=== PATIENT | male | born 1995 | race Two or more races ===

== ENCOUNTER 2016-05-06 13:46 | Emergency (ER) | payer OTHER ==
--- NOTE | 2016-05-06 13:58 | EDM.PDOC ---
ED HPI Trauma - General Chief Complaint: Upper Extremity Injury/Pain Stated Complaint: LT WRIST HURTS Time Seen by Provider: 05/06/16 13:47 Source: Reports: Patient History Limitations: Reports: No limitations - History of Present Illness INITIAL COMMENTS - FREE TEXT/NARRATIVE: History of present illness: [20-year-old male coming in with complaint of left wrist pain. Patient indicates that it is painful on the radial side of his left hand when he does a pinching gesture with the thumb and forefinger as well as pain in the last 3 digits when he hyperflexed his the wrist in either direction. Patient indicates he had a fall on that wrist approximately year ago but he's had increasing pain in the last week and is concerned and feels there might be some unresolved fracture he would like to have addressed.] Review of systems: As per history of present illness and below otherwise all systems reviewed and negative. Past medical history: As per history of present illness and as reviewed below otherwise noncontributory. Surgical history: As per history of present illness and as reviewed below otherwise noncontributory. Social history: No reported history of drug or alcohol abuse. Family history: As per history of present illness and as reviewed below otherwise noncontributory. Physical exam: HEENT: Atraumatic, normocephalic, pupils reactive, negative for conjunctival pallor or scleral icterus, mucous membranes moist, throat clear, neck supple, nontender, trachea midline. Lungs: Clear to auscultation, breath sounds equal bilaterally, chest nontender. Heart: S1S2, regular, negative for clicks, rubs, or JVD. Abdomen: Soft, nondistended, nontender. Negative for masses or hepatosplenomegaly. Negative for costovertebral tenderness. Pelvis: Stable nontender. Genitourinary: Deferred. Rectal: Deferred. Extremities: Atraumatic, negative for cords or calf pain. Neurovascular unremarkable. Neuro: Awake, alert, oriented. Cranial nerves II through XII unremarkable. Cerebellum unremarkable. Motor and sensory unremarkable throughout. Exam nonfocal. Global assessment was benign save neurologic evaluation as described in history of present illness. Diagnostics: [X-ray of left wrist] Therapeutics: [] Impression: [wrist pain] Plan: [meloxicam/OP f/u] Definitive disposition and diagnosis as appropriate pending reevaluation and review of above. Allergies/ADRs: Allergies No Known Allergies Allergy (Verified 05/06/16 14:14) Home Medications: Ambulatory Orders Meloxicam 7.5 mg PO BID #30 tablet 05/06/16 Review of Systems - Review of Systems Review Of Systems: See Below (See history of present illness) Trauma Exam - Physical Exam Exam: See Below (See history of present illness) Course - Vital Signs Last Recorded V/S: Last Vital Signs Temp 36.2 C 05/06/16 14:12 Pulse 78 05/06/16 14:12 Resp 16 05/06/16 14:12 BP 128/70 05/06/16 14:12 Pulse Ox 99 05/06/16 14:12 - Orders/Labs/Meds Orders: Active Orders 24 hr Category Date Time Status Wrist Comp Min 3V Lt [CR] Stat Exams 05/06/16 13:47 Taken Departure - Departure Time of Disposition: 14:43 Disposition: Home, Self-Care 01 Condition: good Clinical Impression: Wrist pain, left Prescriptions: Meloxicam 7.5 mg PO BID #30 tablet Instructions: Carpal Tunnel Syndrome, [id number] Forms: ED Department Discharge Additional Instructions: The following information is given to patients seen in the emergency department who are being discharged to home. This information is to outline your options for follow-up care. We provide all patients seen in our emergency department with a follow-up referral. The need for follow-up, as well as the timing and circumstances, are variable depending upon the specifics of your emergency department visit. If you don't have a primary care physician on staff, we will provide you with a referral. We always advise you to contact your personal physician following an emergency department visit to inform them of the circumstance of the visit and for follow-up with them and/or the need for any referrals to a consulting specialist. The emergency department will also refer you to a specialist when appropriate. This referral assures that you have the opportunity for follow-up care with a specialist. All of these measure are taken in an effort to provide you with optimal care, which includes your follow-up. Under all circumstances we always encourage you to contact your private physician who remains a resource for coordinating your care. When calling for follow-up care, please make the office aware that this follow-up is from your recent emergency room visit. If for any reason you are refused follow-up, please contact the [facility] Emergency Department at and asked to speak to the emergency department charge nurse. Take medication as directed Followup with primary care provider in one to 2 days Return to ER as needed as discussed - My Orders Last 24 Hours: My Active Orders 05/06/16 13:47 Wrist Comp Min 3V Lt [CR] Stat - Assessment/Plan Last 24 Hours: My Active Orders 05/06/16 13:47 Wrist Comp Min 3V Lt [CR] Stat
[2016-05-06 14:14] VITALS: BP 128/70
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
== END 2016-05-06 15:09 | disposition home or self-care (01) ==
LOC: MW.ED 13:46
DX: M25.532 Pain in left wrist (principal)
CPT/HCPCS: 73110-26-LT; 73110-LT; 99283

== ENCOUNTER 2016-06-19 23:27 | Emergency (ER) | payer OTHER ==
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
[2016-06-20] MEDS ORDERED: Cephalexin 500 MG Cap PO ONE (00:24)
[2016-06-20 00:27] VITALS: BP 123/74
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
== END 2016-06-20 00:42 ==
LOC: MW.ED 23:27
DX: S02.2XXA Fracture of nasal bones, initial encounter for closed fracture (principal); S00.83XA Contusion of other part of head, initial encounter; F10.99 Alcohol use, unspecified with unspecified alcohol-induced disorder; Y04.0XXA Assault by unarmed brawl or fight, initial encounter
CPT/HCPCS: 70450; 70486; 73502; 82962; 99285; A9270; 99283

== ENCOUNTER 2016-06-22 13:42 | Emergency (ER) | payer OTHER ==
[2016-06-22 13:59] VITALS: BP 131/67
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
== END 2016-06-22 14:15 | disposition home or self-care (01) ==
LOC: MW.ED 13:42
DX: S02.2XXD Fracture of nasal bones, subsequent encounter for fracture with routine healing (principal); X58.XXXD Exposure to other specified factors, subsequent encounter
CPT/HCPCS: 99281; 99282